=== PATIENT | male | born 1975 | race Caucasian/White ===

== ENCOUNTER 2019-02-11 20:31 | Inpatient (IN) | payer OTHER ==
[~2019-02-11] VITALS: Ht 170.2 cm; Wt 86.2 kg
[2019-02-11 20:35] VITALS: BP 134/99
--- NOTE | 2019-02-11 20:38 | NUR ---
43 Y/O MALE BIBA ALS C/O POSSIBLE ALLERGIC REACTION. PT STATES HE TOOK HIS SISTERS CLONAZEPAM AND THEN REACTION OCCURRED. MEDICATION WAS TAKEN LAST NIGHT AND SYMPTOMS BEGAN X 1 DAY AGO. PT STATES HE IS ALSO PRESCRIBED THIS MEDICATION. PT PRESENTS WITH SWELLING TO THE FACE, LIPS, AND TONGUE. PT STATES 10/10 PAIN TO NECK AND FACE. DENIES SOB/RESPIRATORY DISTRESS. RR EVEN AND UNLABORED. PT GIVEN 25 MG BENADRYL BY EMS EN ROUTE. RR EVEN AND UNLABORED. PT PLACED ON MONITOR. VSS. MEDHX: BIPOLAR, HTN, ANXIETY ALLERGIES: PENICILLIN
--- NOTE | 2019-02-11 20:53 | NUR ---
DR THOMPSON AT BEDSIDE EXAMINING PT.
[2019-02-11] MEDS ORDERED: fentaNYL 0.05 MG/ML VIAL IVP ONE (21:15)
--- NOTE | 2019-02-11 21:15 | NUR ---
PT GIVEN URINAL AND URINE COLLECTED AT THIS TIME.
[2019-02-11] MEDS: NACL 0.9% 1,000 ML IV SCH (21:18)
--- NOTE | 2019-02-11 21:24 | NUR ---
PT RECEIVED 50MCG OF FENTANYL. 50 MCG WAS WASTED, [place] WITNESSED.
--- NOTE | 2019-02-11 21:24 | NUR ---
XRAY AT BEDSIDE.
--- NOTE | 2019-02-11 21:29 | NUR ---
PT STATES RELIEF OF PAIN AFTER MEDICATION. 0/10 AT THIS TIME.
[2019-02-11 21:31] LABS: APPEARANCE,URINE CLEAR (CLEAR); BILIRUBIN,URINE NEGATIVE (NEGATIVE); BLOOD, URINE TRACE-I (NEGATIVE); COLOR,URINE YELLOW (YELLOW); LEUKOCYTE ESTERASE ,URINE NEGATIVE (NEGATIVE); NITRITE, URINE NEGATIVE (NEGATIVE); UGLUCOSE NEGATIVE (NEGATIVE)
--- NOTE | 2019-02-11 21:35 | NUR ---
LAB AT BEDSIDE.
--- NOTE | 2019-02-11 21:41 | NUR ---
DR THOMPSON AT BEDSIDE EXAMINING PT
--- NOTE | 2019-02-11 21:54 | NUR ---
PT RESTING IN BED WITH EYES CLOSED, VISIBLE RISE AND FALL OF THE CHEST. RR EVEN AND UNLABORED. VSS. BED LOCKED AND IN LOW POSITION. WILL CONTINUE TO MONITOR.
[2019-02-11 22:02] LABS: BASOPHILS % (AUTO) 0.3 % (0.0-2.0); EOSINOPHILS # (AUTO) 0.2 K/uL (0-0.4); EOSINOPHILS % (AUTO) 1.6 % (0.0-4.0); HEMATOCRIT 41.6 % (36-52); HEMOGLOBIN 14.1 g/dL (12.0-18.0); LYMPHOCYTES # (AUTO) 1.4 K/uL (2.0-11.5); LYMPHOCYTES % (AUTO) 14.9 % (20.5-51.1); MEAN CORPUSCULAR HEMOGLOBIN 31 pg (27-31); MEAN CORPUSCULAR HGB CONC 34 g/dL (33-37); MEAN CORPUSCULAR VOLUME 92.4 fL (80-94); MONOCYTES # (AUTO) 0.9 K/uL (0.8-1.0); MONOCYTES % (AUTO) 9.4 % (1.7-9.3); NEUTROPHILS # (AUTO) 7.1 K/uL (1.8-7.7); NEUTROPHILS % (AUTO) 73.8 % (42.2-75.2); PLATELET COUNT (AUTO) 160 K/uL (140-450); RED BLOOD CELL COUNT(AUTO) 4.51 MIL/uL (4.20-6.10); RED CELL DISTRIBUTION WIDTH 13.5 % (11.6-13.7); WHITE BLOOD COUNT (AUTO) 9.6 K/uL (4.8-10.8)
[2019-02-11 22:12] LABS: PROTHROMBIN TIME 10.2 secs (10.8-13.4)
[2019-02-11 22:16] LABS: ALBUMIN 3.3 g/dL (3.4-5.0); ANION GAP 11.9 (8-16); CARBON DIOXIDE 24.9 mmol/L (21-32); POTASSIUM 3.8 mmol/L (3.5-5.1); TOTAL BILIRUBIN 0.5 mg/dL (0.0-1.0)
--- NOTE | 2019-02-11 22:52 | NUR ---
PT SITTING ON BED TALKING ON HIS CELL PHONE. STATES PAIN IS INCREASING AGAIN, 05/23 BUT STATES TOLERABLE AT THIS TIME. DR THOMPSON MADE AWARE. VSS. WILL CONTINUE TO MONITOR.
--- NOTE | 2019-02-11 23:40 | NUR ---
Patient will be admitted to care of DR KRUEGER. Admited to MED/SURG. Will go to room 125A. Belongings list completed. Report to LAVINIA ZAMBRANO.
--- NOTE | 2019-02-11 23:45 | NUR ---
RECEIVED REPORT FROM ER NURSE AT BEDSIDE. PATIENT ALERT/ORIENTED X4. RESPIRATIONS EVEN, UNLABORED. SKIN WARM, DRY, INTACT. IV SITE TO LEFT AC 18G PATENT AND INTACT. NO S/SX ACUTE DISTRESS. MRSA SCREEN COMPLETED, VITALS STABLE. ORIENTED TO ROOM, STAFF, AND CALL LIGHT. PLAN OF CARE DISCUSSED. SAFETY MEASURES IN PLACE. BED IN LOWEST POSITION, CALL LIGHT WITHIN REACH. WILL CONTINUE TO MONITOR.
[2019-02-12] MEDS ORDERED: diphenhydrAMINE 50 MG/ML VIAL IVP PRN (00:05)
[2019-02-12] MEDS ORDERED: ACETAMINOPHEN EXTRA STRENGTH 500 MG TAB PO PRN (00:05)
[2019-02-12] MEDS ORDERED: ACETAMINOPHEN 650 MG/20.3 ML UDC PO PRN (00:25)
[2019-02-12] MEDS ORDERED: ALPRAZolam 0.25 MG TAB ONE (00:34)
--- NOTE | 2019-02-12 00:38 | NUR ---
PATIENT C/O ANXIETY. MEDICATED WITH XANAX ORDERED. CALL LIGHT WITHIN REACH. WILL CONTINUE TO MONITOR.
[2019-02-12] MEDS: NACL 0.9% 1,000 ML IV SCH ×3 (00:39→16:57)
[2019-02-12] MEDS ORDERED: ALPRAZolam 0.5 MG TAB PO PRN ×2 (01:00→08:14)
[2019-02-12 01:27] VITALS: BP 126/77
--- NOTE | 2019-02-12 02:00 | NUR ---
TEMPERATURE OF 101.6F. MEDICATED WITH TYLENOL ORDERED. COOLING MEASURES IN PLACE. NO C/O PAIN. CALL LIGHT WITHIN REACH. WILL CONTINUE TO MONITOR.
[2019-02-12] MEDS: ACETAMINOPHEN 325 MG TAB PO PRN ×2 (02:01→21:17)
--- NOTE | 2019-02-12 02:50 | NUR ---
RECHECKED TEMPERATURE AT 98.1F. PATIENT ASLEEP. NO C/O PAIN. NO S/SX ACUTE DISTRESS. CALL LIGHT WITHIN REACH. WILL CONTINUE TO MONITOR.
--- NOTE | 2019-02-12 04:30 | NUR ---
PATIENT ASLEEP. CONTINUES IN STABLE CONDITION. NO C/O PAIN. NO S/SX ACUTE DISTRESS. CALL LIGHT WITHIN REACH. WILL CONTINUE TO MONITOR.
--- NOTE | 2019-02-12 07:14 | NUR ---
ENDORSED PATIENT IN STABLE CONDITION TO AM SHIFT.
--- NOTE | 2019-02-12 07:15 | NUR ---
RECEIVED REPORT FROM [facility]. PT IS AWAKE AND ORIENTED. NO SIGNS OF DISTRESS, PT HAS IV AT L AC 20G INFUSING AT 60/HR. PT IS ON FULL LIQUID DIET, ALLERGY TO PENICILLINS, SKIN INTACT. WILL CONTINUE MONITORING.
[2019-02-12 08:00] VITALS: BP 128/88
--- NOTE | 2019-02-12 08:29 | NUR ---
PATIENT HAS BEEN SCREENED AND CATEGORIZED LOW NUTRITION RISK. PATIENT WILL BE SEEN WITHIN 7 DAYS OF ADMISSION. 02/18/[address]
--- NOTE | 2019-02-12 09:00 | NUR ---
SCHEDULED MEDS GIVEN. WILL CONTINUE MONITORING
[2019-02-12] MEDS: HYDROCORTISONE NA SUCC 100 MG/2 ML VIAL IV SCH ×2 (09:46→21:16)
[2019-02-12] MEDS: FAMOTIDINE 20 MG TAB PO SCH ×2 (09:46→21:17)
[2019-02-12] MEDS ORDERED: ALPR1TAB2 PO (09:56)
--- NOTE | 2019-02-12 12:00 | NUR ---
PATIENT SITTING DOWN IN BED. CONDITION UNCHANGED. WILL CONTINUE TO MONITOR.
[2019-02-12] MEDS ORDERED: ALPRAZolam 0.5 MG TAB PO SCH (15:08)
--- NOTE | 2019-02-12 15:15 | NUR ---
XANAX GIVEN PRN. PT TOLERATED WELL.WILL CONTINUE MONITORING
[2019-02-12 16:00] VITALS: BP 140/90
--- NOTE | 2019-02-12 19:00 | NUR ---
REPORT GIVEN TO GROUP MANAGER NURSE, PT HAS NO SIGN OF DISTRESS. V/S WITHIN NORMAL RANGE
--- NOTE | 2019-02-12 19:01 | NUR ---
RECEIVED REPORT FROM DAY SHIFT NURSE AT BEDSIDE. PATIENT ALERT/ORIENTED X4. RESPIRATIONS EVEN, UNLABORED. SKIN WARM, DRY, IV SITE TO LEFT AC 18G PATENT AND INTACT. NO S/SX ACUTE DISTRESS. PLAN OF CARE DISCUSSED. SAFETY MEASURES IN PLACE. BED IN LOWEST POSITION, CALL LIGHT WITHIN REACH. WILL CONTINUE TO MONITOR.
[2019-02-12] MEDS: ALPRAZolam 0.5 MG TAB PO SCH (21:17)
--- NOTE | 2019-02-12 21:17 | NUR ---
GIVEN PEPCID, XANAX, SOLU-CORTEF. PT C/O 04/22 LIP PAIN, GIVEN TYLENOL MD ORDERED. PT TOLERATED WELL.
[2019-02-13] VITALS: BP 121/80
--- NOTE | 2019-02-13 | NUR ---
VS CHECKED, WITHIN NORMAL RANGE. WILL CONTINUE TO MONITOR.
--- NOTE | 2019-02-13 02:42 | NUR ---
PT SLEEPING IN BED. NO ACUTE DISTRESS NOTED. WILL CONTINUE TO MONITOR.
--- NOTE | 2019-02-13 04:25 | NUR ---
PT SLEEPING IN BED. NO ACUTE DISTRESS NOTED. WILL CONTINUE TO MONITOR.
--- NOTE | 2019-02-13 06:53 | NUR ---
PT LYING IN BED, AWAKE. NO ACUTE DISTRESS NOTED. WILL CONTINUE TO MONITOR.
--- NOTE | 2019-02-13 07:30 | NUR ---
RECEIVED BEDSIDE REPORT FROM NIGHTSHIFT NURSE. PT ASLEEP IN BED UPON ARRIVAL. SKIN WARM AND DRY TO TOUCH. RESPONSIVE TO VERBAL AND TACTILE STIMULI. ABLE TO MAKE NEEDS KNOWN. RESPIRATIONS EVEN AND UNLABORED WITH NO SOB OR RESPIRATORY DISTRESS. IV SITE IN LEFT AC 18G IS CLEAN, DRY, AND INTACT. SAFETY MEASURES IN PLACE. WILL CONTINUE TO MONITOR.
[2019-02-13 08:00] VITALS: BP 113/76
[2019-02-13] MEDS: HYDROCORTISONE NA SUCC 100 MG/2 ML VIAL IV SCH (08:57)
[2019-02-13] MEDS: FAMOTIDINE 20 MG TAB PO SCH (08:57)
[2019-02-13] MEDS: ALPRAZolam 0.5 MG TAB PO SCH (08:57)
--- NOTE | 2019-02-13 08:57 | NUR ---
ADMINISTERED SCHEDULED MED PRESCRIBED PER MD ORDER. PT TOLERATED WELL. MEDICATION EDUCATION PERFORMED. PT ABLE TO VERBALIZE UNDERSTANDING. SAFETY MEASURES IN PLACE. WILL CONTINUE TO MONITOR.
[2019-02-13] MEDS: NACL 0.9% 1,000 ML IV SCH (10:26)
--- NOTE | 2019-02-13 10:26 | NUR ---
ADMINISTERED SCHEDULED IV FLUIDS PRESCRIBED PER MD ORDER. PT TOLERATED WELL. MEDICATION EDUCATION PERFORMED. PT VERBALIZED UNDERSTANDING AND COULD TEACH BACK. SAFETY MEASURES IN PLACE. WILL CONTINUE TO MONITOR.
[2019-02-13] MEDS ORDERED: LORA-476 PO (11:48)
--- NOTE | 2019-02-13 12:15 | NUR ---
HOURLY ROUNDING. PT RESTING IN BED UPON ARRIVAL. ABLE TO MAKE NEEDS KNOWN. RESPIRATIONS EVEN AND UNLABORED WITH NO SOB OR RESPIRATORY DISTRESS. SKIN WARM AND DRY TO TOUCH. FREQUENT CHECKS MADE. WILL CONTINUE TO MONITOR
--- NOTE | 2019-02-13 12:40 | NUR ---
INFORMED PT THAT HE IS GETTING DISCHARGED TODAY. PT REQUESTED TO GO HOME AFTER LUNCH. PT SISTER WILL BE HERE TO TAKE HIM HOME. SAFETY MEASURES IN PLACE. WILL CONTINUE TO MONITOR.
[2019-02-13 12:45] VITALS: BP 113/76
--- NOTE | 2019-02-13 13:11 | NUR ---
PT RESTING IN BED UPON ARRIVAL. RESPIRATIONS EVEN AND UNLABORED WITH NO SOB OR RESPIRATORY DISTRESS. SKIN WARM AND DRY. ABLE TO MAKE NEEDS KNOWN. WENT OVER DISCHARGE PAPERS. PT SIGNED APPROPRIATE FORMS. EDUCATED PT ON VISITING THE ED FOR ANY SIGNS OF DISTRESS. PT VERBALIZED UNDERSTANDING. ID BAND AND INTACT IV CANNULA WERE REMOVED. PT GATHERED ALL OF THEIR BELONGINGS AND CHANGED INTO THEIR OWN CLOTHES. PT PREVIOUSLY HAS BEEN VACCINATED FOR THE FLU VACCINE AND DID NOT WANT THE PNA VACCINE. PT WHEELED OUT AND WAS SAFELY TRANSFERRED INTO THEIR PRIVATE VEHICLE. PT IS STABLE.
== END 2019-02-13 13:17 | disposition home or self-care (01) | DRG 811 ==
LOC: MED 20:31 → MMU 23:19
PROVIDERS: ADMIT Internal Medicine Pulmonary Disease; ATTEND Internal Medicine Pulmonary Disease
DX: T78.3XXA Angioneurotic edema, initial encounter (principal); L51.1 Stevens-Johnson syndrome; F31.9 Bipolar disorder, unspecified; F41.1 Generalized anxiety disorder; T43.225A Adverse effect of selective serotonin reuptake inhibitors, initial encounter; Z88.0 Allergy status to penicillin; Y92.89 Other specified places as the place of occurrence of the external cause
CPT/HCPCS: 36415; 71045; 80053; 81003; 82550; 83605; 83880; 84484; 85025; 85610; 85730; 87040; 87081; 87086; 93005; 96361; 96374; 99285; J1720; J3010; J7030